=== PATIENT | female | born 1970 | race African-American/Black ===

== ENCOUNTER 2016-10-04 21:43 | Emergency (ER) | payer MEDICAID ==
[2016-06-10 08:11] VITALS: BMI 38.8
[~2016-10-04 21:43] MED LIST: ATIVAN1 MG PO; CELEXA20 MG PO; CYCLOBENZAPRINE10 MG PO; DULERA 100 MCG8.8 GM INH; FUROSEMIDE20 MG PO; HYDROCODONE-APA1 TAB PO; IPRAT-ALBUT 0.5-3 ML UPD; K-DUR20 MEQ PO; LASIX20 MG PO; LISINOPRIL-HCTZ1 T13 PO; LOPRESSOR25 MG PO; METOPROLOL TART25 MG PO; MOBIC7.5 MG PO; NORVASC5 MG PO; PROVENTIL HFA6.7 GM INH; RESTORIL15 MG PO; SYMBICORT 16010.2 GM INH; TYLENOL W/CODEI1 TAB PO; ULTRAM50 MG PO; ZITHROMAX250 MG PO; ZOLOFT50 MG PO
[2016-10-04 22:20] LABS: BASOPHILS 0.6 % (0.0-2.0); EOSINOPHILS 3.9 % (0-7); HEMATOCRIT 42.7 % (36.0-48.0); HEMOGLOBIN 14.4 g/dL (12-16); IMMATURE GRANULOCYTES 0.2 % (0-5); LYMPHOCYTES 38.5 % (15-50); MCH 27.5 pg (26.0-34.0); MCHC 33.7 g/dL (31.0-37.0); MCV 81.6 fL (80.0-100.0); MEAN PLATELET VOLUME 11.2 fL (7.4-10.4); MONOCYTES 7.6 % (2-11); NEUTROPHILS 49.2 % (40-80); PLATELET COUNT 326 10x3/uL (130-400); RBC 5.23 10x6/uL (4.00-5.40); RDW 13.1 % (11.5-14.5); WBC 6.2 10x3/uL (4.8-10.8)
[2016-10-04 22:34] LABS: ALBUMIN 3.8 g/dL (3.4-5.0); ALKALINE PHOSPHATASE 89 U/L (46-116); ALT (SGPT) 24 U/L (10-68); BILIRUBIN - TOTAL 0.18 mg/dL (0.2-1.3); CALC OSMOLALITY 274 mosm/kg (275-300); CALCIUM 8.7 mg/dL (8.5-10.1); CARBON DIOXIDE 26.8 mmol/L (21.0-32.0); CHLORIDE - SERUM 102 mmol/L (98-107); CREATININE - SERUM 1.1 mg/dL (0.6-1.3); GLUCOSE 123 mg/dL (74-106); POTASSIUM - SERUM 3.5 mmol/L (3.5-5.1); PROTEIN - SERUM 8.1 g/dL (6.4-8.2); SODIUM 138 mmol/L (136-145); UREA NITROGEN 8 mg/dL (7-18); eGFR NON AFRICAN AMERICAN 57 mL/min (90-120)
[2016-10-04 22:45] LABS: CHOLESTEROL, TOTAL 190 mg/dL (0-200); CKMB 0.2 U/L (0.0-3.6); CREATINE KINASE 144 UL (21-215); HDL CHOLESTEROL 47 mg/dL (32-96); LDL CHOLESTEROL 117 mg/dL (0-100); LDL-HDL RATIO 2.5 ratio (1.5-3.5); TRIGLYCERIDE 131 mg/dL (30-200); TROPONIN-I < 0.017 ng/mL (0.000-0.060)
== END 2016-10-04 23:19 | disposition home or self-care (01) ==
LOC: D.ER 21:43
PROVIDERS: Emergency Medicine
DX: R07.9 Chest pain, unspecified (principal); I10 Essential (primary) hypertension; E11.9 Type 2 diabetes mellitus without complications; R00.0 Tachycardia, unspecified

== ENCOUNTER 2016-11-08 21:14 | Emergency (ER) | payer MEDICAID ==
[2016-06-10 08:11] VITALS: BMI 38.8
== END 2016-11-08 23:15 | disposition home or self-care (01) ==
LOC: D.ER 21:14
DX: M79.7 Fibromyalgia (principal)

== ENCOUNTER 2016-11-25 19:25 | Emergency (ER) | payer MEDICAID ==
[2016-06-10 08:11] VITALS: BMI 38.8
== END 2016-11-25 20:37 | disposition home or self-care (01) ==
LOC: D.ER 19:25
DX: M79.605 Pain in left leg (principal); M19.90 Unspecified osteoarthritis, unspecified site; S80.12XA Contusion of left lower leg, initial encounter; W19.XXXA Unspecified fall, initial encounter; Y93.89 Activity, other specified; Y92.89 Other specified places as the place of occurrence of the external cause; G89.18 Other acute postprocedural pain; M79.7 Fibromyalgia; I10 Essential (primary) hypertension

== ENCOUNTER 2017-01-13 09:20 | Emergency (ER) | payer MEDICAID ==
[2016-06-10 08:11] VITALS: BMI 38.8
[2017-01-13 10:17] LABS: BASOPHILS 0.6 % (0-2); EOSINOPHILS 1.7 % (0-7); HEMOGLOBIN 13.9 g/dL (12-16); IMMATURE GRANULOCYTES 0.2 % (0-5); LYMPHOCYTES 45.5 % (15-50); MCH 28.1 pg (26.0-34.0); MCHC 33.9 g/dL (31.0-37.0); MEAN PLATELET VOLUME 10.9 fL (7.4-10.4); MONOCYTES 11.9 % (2-11); NEUTROPHILS 40.1 % (40-80); PLATELET COUNT 293 10x3/uL (130-400); RBC 4.94 10x6/uL (4.00-5.40); RDW 13.6 % (11.5-14.5); WBC 5.2 10x3/uL (4.8-10.8)
[2017-01-13 10:32] LABS: ALBUMIN 3.9 g/dL (3.4-5.0); ANION GAP 13.2 mmol/L (8-16); BILIRUBIN - TOTAL 0.63 mg/dL (0.2-1.3); CALCIUM 9.1 mg/dL (8.5-10.1); CARBON DIOXIDE 29.3 mmol/L (21.0-32.0); CREATININE - SERUM 1.3 mg/dL (0.6-1.3); POTASSIUM - SERUM 3.5 mmol/L (3.5-5.1)
[2017-01-13 11:41] LABS: APPEARANCE CLOUDY (CLEAR); BILIRUBIN NEGATIVE (NEGATIVE); COLOR YELLOW (YELLOW); GLUCOSE NEGATIVE (NEGATIVE); KETONE SMALL mg/dL (NEGATIVE); LEUKOCYTE ESTERASE NEGATIVE (NEGATIVE); NITRITE NEGATIVE (NEGATIVE); PROTEIN NEGATIVE (NEGATIVE); UROBILINOGEN NORMAL (NORMAL)
== END 2017-01-13 12:50 | disposition home or self-care (01) ==
LOC: D.ER 09:20
PROVIDERS: Emergency Medicine
DX: R42 Dizziness and giddiness (principal); I95.9 Hypotension, unspecified; E11.9 Type 2 diabetes mellitus without complications

== ENCOUNTER → 2017-03-13 14:40 | Outpatient (CLI) | payer MEDICAID ==
[2016-06-10 08:11] VITALS: BMI 38.8
== END | disposition home or self-care (01) ==
LOC: D.MRI 03-09 11:00
DX: M54.2 Cervicalgia (principal)

== ENCOUNTER → 2017-04-27 10:32 | Outpatient (CLI) | payer OTHER ==
[2016-06-10 08:11] VITALS: BMI 38.8
== END | disposition home or self-care (01) ==
LOC: D.RAD 10:32
DX: Z02.71 Encounter for disability determination (principal)

== ENCOUNTER → 2017-06-05 12:32 | Outpatient (CLI) | payer MEDICAID ==
[2016-06-10 08:11] VITALS: BMI 38.8
[~2017-06-05 12:32] MED LIST changes: +ALDACTONE50 MG PO
== END | disposition home or self-care (01) ==
LOC: D.MRI 12:32
DX: M54.12 Radiculopathy, cervical region (principal)

== ENCOUNTER 2017-06-16 06:52 | Inpatient (IN) | payer MEDICAID ==
[2017-06-15 14:54] LABS: HEMATOCRIT 41.4 % (36.0-48.0); HEMOGLOBIN 13.8 g/dL (12-16); MCH 27.9 pg (26.0-34.0); MCHC 33.3 g/dL (31.0-37.0); MCV 83.6 fL (80.0-100.0); MEAN PLATELET VOLUME 10.8 fL (7.4-10.4); RBC 4.95 10x6/uL (4.00-5.40); RDW 13.6 % (11.5-14.5); WBC 5.9 10x3/uL (4.8-10.8)
[2017-06-15 15:03] LABS: ANION GAP 13.3 mmol/L (8-16); CALCIUM 8.8 mg/dL (8.5-10.1); CARBON DIOXIDE 27.8 mmol/L (21.0-32.0); CREATININE - SERUM 0.9 mg/dL (0.6-1.3); POTASSIUM - SERUM 4.1 mmol/L (3.5-5.1)
[2017-06-16] VITALS (20 sets, daily range): BP systolic 96–148; BP diastolic 55–89; BMI 36.8; BMI 39.5
[~2017-06-16] VITALS: Ht 162.6 cm; Wt 99.5 kg
--- NOTE | 2017-06-16 09:05 | NUR ---
0905 STATES IS A DIET CONTROLLED TYPE 2 DIABETIC.
--- NOTE | 2017-06-16 13:00 | NUR ---
REC'D PT FROM OR VIA BED, ACCOMPANIED BY HOSPTIAL STAFF. VSS, 3LNC, INCISION NOTED TO RIGHT NECK. RIGHT HAND PIV WITH FLUIDS INFUSING, SEE FLOW SHEET. SHIFT ASSESSMENT COMPLETED, SEE FLOW SHEET. BED LOCKED IN LOWEST POSITION, CALL LIGHT IN REACH, BED ALARM ACTIVE, WILL CONTINUE TO MONITOR PT.
--- NOTE | 2017-06-16 13:02 | NUR ---
ALL NEURO CHECKS INTACT
--- NOTE | 2017-06-16 13:17 | NUR ---
Spoke with Dr Ross about restarting home medications. He had already left hospital. Reviewed list. Ok to restart.
--- NOTE | 2017-06-16 15:51 | NUR ---
PT RESTING WITH EYES CLOSED, VSS, DENIES ANY PAIN, WILL CONTINUE TO MONITOR PT.
--- NOTE | 2017-06-16 16:20 | NUR ---
TRANSFERRED PT FROM BED TO BATHROOM, PT VOIDED 350 ML, TRANSFERRED BACK TO BED, WILL CONTINUE TO MONITOR PT.
--- NOTE | 2017-06-16 17:00 | NUR ---
PT TOLERATING CLEAR LIQUIDS AND FULL LIQUIDS, ASKING FOR "REAL FOOD", WILL ORDER REGULAR DIET TRAY. WILL CONTINUE TO MONITOR PT.
--- NOTE | 2017-06-16 19:30 | NUR ---
REPORT RECEIVED AND CARE ASSUMED. INITIAL SHIFT ASSESSMENT COMPLETED SEE FLOWSHEET. IVF AND LINES DATED AND LABELED AND CURRENT. PT BEING MONITORED PER STANDARD CVICU PROTOCOL WITH ALL ALARMS SET AND VERIFIED. DRESSING TO RIGHT NECK CDI AND WITH NO VISIBLE DRAINAGE NOTED. PT IS WEARING SOFT CERVICAL COLLAR WHILE LYING IN BED STATING IT FEELS BETTER WITH IT ON. CALL LIGHT IN REACH AND BED IS IN LOW POSITION.
--- NOTE | 2017-06-16 20:00 | NUR ---
VISITORS AT BEDSIDE AT THIS TIME. PT IS VISITING FREELY NO REQUESTS
--- NOTE | 2017-06-16 20:40 | NUR ---
PT AMBULATED TO BATHROOM WITHOUT DIFFICULTY. WEARING SOFT CERVICAL COLLAR. STATES HER PAIN IS A 6 ON SCALE OF 0-10 PAIN DUE TO SORE THROAT. REFUSES MEDICINAL INTERVENTION. ACCEPTED SOME HOT TEA AND JELLO TO SOOTHE HER SORE THROAT. HS SNACK PROVIDED
--- NOTE | 2017-06-16 21:30 | NUR ---
PT STATES SHE IS FEELING FINE. STATES THE HOT TEA HELPED HER THROAT. NO FURTHER NEEDS VOICED.
--- NOTE | 2017-06-16 23:15 | NUR ---
SHIFT ASSESSMENT CHARTED ON FLOWSHEET. PT STATES SHE IS BEGINING TO HAVE PAIN IN NECK AND MEDS GIVEN DOCUMENTED ON OCT. PT REFUSED THE NORCO STATING IT REALLY DIDNT HELP LAST TIME. PT HAS BEEN UP TO BATHROOM SEVERAL TIMES. NOTE GAIT IS STEADY AND HELP PROVIDED BUT IS ONLY NEEDED ONLY DUE TO THE AMOUNT OF LINES AND WIRES INVOLVED WITH MONITORING PT IN CVICU.
[2017-06-17] VITALS (11 sets, daily range): BP systolic 101–132; BP diastolic 59–84; Ht 162.6 cm; Wt 99.5 kg
--- NOTE | 2017-06-17 01:00 | NUR ---
PT SLEEPING RESP REG AND NONLABORED NO FURTHER EVIDENCE OF DISCOMFORT
--- NOTE | 2017-06-17 03:00 | NUR ---
SHIFT REASSESSMENT COMPLETED. NO SIGNIFICANT CHANGES. NEURO STATUS OF PT HAS REMAINED INTACT THROUGHOUT THIS SHIFT. PT DENIES NEEDS. IS AWAKE TEXTING ON HER CELL PHONE. CONTINUE TO MONITOR PER ORDER. DRESSING TO RIGHT NECK CDI
--- NOTE | 2017-06-17 05:00 | NUR ---
NEURO CHECKS WNL THOUGHOUT THIS SHIFT. PT AAOX4. DRESSING TO RIGHT NECK CDI. NEEDS MET THROUGHOUT THE SHIFT,
--- NOTE | 2017-06-17 07:00 | NUR ---
PT REPOR REC'D, PT CARE ASSUMED. PT RESTING WITH EYES CLOSED, VSS, ROOM AIR, DENIES ANY PAIN UPON ASSESSMENT, NO SIGNS OF PAIN OR DISTRESS. RIGHT HAND PIV WITH FLUIDS INFUSING, SEE FLOW SHEET,NO REDNESS OR SIGNS OF INFILTRATION. RIGHT NECK INCISION, DRESSING CDI. UP TO BATHROOM WITH ASSISTANCE. SHIFT ASSESSMENT COMPLETED, SEE FLOW SHEET. ROOM FREE OF CLUTTER, CALL LIGHT IN REACH, BED ALARM ACTIVE, WILL CTONINEU TO MONITOR PT.
--- NOTE | 2017-06-17 08:50 | NUR ---
PT C/O "STARTING TO FEEL TIGHTNESS IN MY CHEST, CAN DR. WELLS RESTART MY ASTHMA MEDICATIONS?" SPOKE WITH DR. WELLS, ORDERS REC'D, WILL CONTINUE TO MONITOR PT.
--- NOTE | 2017-06-17 09:38 | NUR ---
PT FAMILY AT THE BEDSIDE, ALL QUESTIONS ANSWERED, VSS, WILL CONTINUE TO MONITOR PT.
--- NOTE | 2017-06-17 10:20 | NUR ---
DR. WELLS AT THE BEDSIDE
--- NOTE | 2017-06-17 10:30 | NUR ---
SPOKE WITH LOUISE FROM DR. WELLS'S OFFICE, PT HAS F/U APPT 07/16/17 AT [id number]
--- NOTE | 2017-06-17 10:45 | NUR ---
D/C'ED RIGHT HAND PIV, TIP INTACT, 4X4 AND BAND AID APPLIED. D/C INSTRUCTIONS EXPLAINED TO PT AND PTS , VERBALIZED UNDERSTANDING, WILL CONTINUE TO MONITOR PT.
--- NOTE | 2017-06-17 11:00 | NUR ---
WHEELED PT OUT TO PTS 'S VEHICLE, DC PAPERWORK IN HAND.
--- NOTE | 2017-06-19 12:16 | OP ---
PATIENT NAME: RASHEED ATKINSON MEDICAL RECORD: [id number] :74 LOCATION:[id number] ADMISSION DATE:06/16/17 SURGEON: KEELY WELLS MD DATE OF OPERATION: 06/16/2017 PREOPERATIVE DIAGNOSES: Disc herniation and osteophyte formation at C5-C6 and C6-C7 with cervical radiculopathies. POSTOPERATIVE DIAGNOSES: Disc herniation and osteophyte formation at C5-C6 and C6-C7 with cervical radiculopathies. PROCEDURES: Anterior cervical discectomy and fusion with PEEK interbody cages, Biocell bone stem cells, Zavation anterior cervical plate and screws with midline plate of 28 mm and 16-mm screws. DESCRIPTION AND TECHNIQUE: After induction of general endotracheal anesthesia, the patient was positioned supine on the operating table. Neck was prepped and draped in usual sterile fashion. Fluoroscopic x-ray and [place] localized the C6 vertebral body. A transverse skin incision was carried out from the midline to the sternocleidomastoid muscle. The platysma was divided with #15 blade. Using blunt and sharp dissection with Metzenbaum scissors, I proceeded in an avascular plane medial to the carotid sheath. The C5-C6 and C6-C7 interspaces were identified. Longus colli muscle were elevated with Bovie cautery. A self-retaining retractor was placed deep to the longus colli muscles. The Effie distracting pins were place by C5, C6, and C7. Disc spaces were incised under distraction and disc material was removed with pituitary rongeurs and curettes. Osteophytes were drilled away posteriorly with Midas-Angus drill. The posterior longitudinal ligament was removed with Cloward rongeurs. Following this, the dura was decompressed at both levels well. A PEEK interbody cage was placed in each interspace under distraction. Prior to this, it was filled with bone stem cell allograft. A 28-mm midline plate was used to span the C5-C6 and C6-C7 interspaces. Locking cams were tightened down over screw heads. Meticulous hemostasis was maintained throughout the wound. The wound was irrigated with copious amounts of Ancef irrigant solution. The platysma and subdermal layer were closed with interrupted 3-0 Vicryl suture. The skin was closed with Steri-Strips and benzoin. A sterile dressing was applied to the wounds. The patient was awakened in good condition and taken to recovery. All counts were reported as correct. Estimated blood loss was minimal. TRANSINT:[id number] Voice Confirmation ID: [id number] DOCUMENT ID: [id number] KEELY WELLS MD at 1216 CC: [id number] DICTATION DATE: 06/16/17 1258 INFORMATION SYSTEMS DIRECTOR: 06/16/17 1323 DIS IN 06/17/17 [place] [id number] [place] [id number]
--- NOTE | 2017-07-14 13:27 | DS ---
PATIENT:RASHEED ATKINSON :74 MEDICAL RECORD: [id number] DISCHARGE SUMMARY ADMISSION DATE: 06/16/17 DISCHARGE DATE: 06/17/17 BRIEF SUMMARY AND HOSPITAL COURSE: The patient was admitted for anterior cervical diskectomy and fusion on 06/17/2017, discharged home on postoperative day #1. She tolerated the procedure well. She is followed with serial neuro checks and vitals in the ICU overnight. She is discharged home on a regular diet and hydrocodone for pain control and to resume the current home medications. She is to follow up with Dr. Ross in 2 weeks and in 4 weeks. CONDITION ON DISCHARGE: Stable. TRANSINT:[id number] Voice Confirmation ID: [id number] DOCUMENT ID: [id number] KEELY ROSS MD at 1327 CC: [id number] DICTATION DATE: 07/07/17 1224 PHARMACY INFORMATICS MANAGER: 07/08/17 0848 DIS IN 06/17/17 [place] [id number] [place] [address]
== END 2017-06-17 11:00 | disposition home or self-care (01) | DRG 473 ==
LOC: D.CVICU 06:52 → D.SDCHOLD 06:52 → D.CVICU 13:09
PROVIDERS: Anesthesiology; ADMIT Neurological Surgery
PROC: 0RT30ZZ Resection of Cervical Vertebral Disc, Open Approach (ICD-10-PCS; principal; 2017-06-16 10:00)
PROC: 0RG10A0 Fusion of Cervical Vertebral Joint with Interbody Fusion Device, Anterior Approach, Anterior Column, Open Approach (ICD-10-PCS; 2017-06-16 10:00)
DX: M50.222 Other cervical disc displacement at C5-C6 level (principal); M54.12 Radiculopathy, cervical region; M25.78 Osteophyte, vertebrae; I10 Essential (primary) hypertension; Z87.891 Personal history of nicotine dependence

== ENCOUNTER → 2018-02-16 17:08 | Outpatient (CLI) | payer MEDICAID ==
[2017-06-17 09:43] VITALS: BMI 37.6
[~2018-02-16 17:08] MED LIST changes: +FUROSEMIDE20 MG; +POTASSIUM99 M1; +TORADOL10 MG PO
== END | disposition home or self-care (01) ==
LOC: D.MRI 02-10 08:30
DX: M54.12 Radiculopathy, cervical region (principal)

== ENCOUNTER → 2018-04-16 10:35 | Outpatient (CLI) | payer MEDICAID ==
[2017-06-17 09:43] VITALS: BMI 37.6
== END | disposition home or self-care (01) ==
LOC: D.MRI 04-15 17:00
DX: M75.121 Complete rotator cuff tear or rupture of right shoulder, not specified as traumatic (principal)

== ENCOUNTER 2018-04-25 13:19 | Emergency (ER) | payer MEDICAID ==
[~2018-04-25] VITALS: Ht 162.6 cm; Wt 100.0 kg
[~2018-04-25 13:19] MED LIST changes: -FUROSEMIDE20 MG; -POTASSIUM99 M1; -TORADOL10 MG PO
[2018-04-25 13:23] VITALS: Ht 162.6 cm; Wt 100.0 kg
[2018-04-25] MEDS ORDERED: MOBIC7.5 MG PO (13:24)
[2018-04-25] MEDS ORDERED: FUROSEMIDE20 MG PO (13:25)
[2018-04-25] MEDS ORDERED: POTASSIUM99 M1 (13:25)
[2018-04-25] MEDS ORDERED: FUROSEMIDE20 MG (13:25)
[2018-04-25] MEDS ORDERED: TORADOL10 MG PO (14:53)
[2018-04-25 15:39] VITALS: BP 114/66
== END 2018-04-25 15:40 | disposition home or self-care (01) ==
LOC: D.ER 13:19
DX: M25.511 Pain in right shoulder (principal); I10 Essential (primary) hypertension

== ENCOUNTER → 2018-05-27 05:25 | Day surgery (SDC) | payer MEDICAID ==
[2018-05-21 09:30] LABS: BASOPHILS 0.3 % (0-2); EOSINOPHILS 1.5 % (0-7); HEMATOCRIT 41.1 % (36.0-48.0); LYMPHOCYTES 40.9 % (15-50); MCH 28.1 pg (26.0-34.0); MCHC 34.1 g/dL (31.0-37.0); MCV 82.5 fL (80.0-100.0); MEAN PLATELET VOLUME 10.3 fL (7.4-10.4); MONOCYTES 9.8 % (2-11); NEUTROPHILS 47.5 % (40-80); PLATELET COUNT 231 10x3/uL (130-400); RBC 4.98 10x6/uL (4.00-5.40); RDW 13.8 % (11.5-14.5); WBC 3.9 10x3/uL (4.8-10.8)
[2018-05-21 09:37] LABS: CALC OSMOLALITY 277 mosm/kg (275-300); CALCIUM 8.4 mg/dL (8.5-10.1); CARBON DIOXIDE 28.4 mmol/L (21.0-32.0); CHLORIDE - SERUM 104 mmol/L (98-107); CREATININE - SERUM 0.8 mg/dL (0.6-1.3); GLUCOSE 111 mg/dL (74-106); POTASSIUM - SERUM 3.6 mmol/L (3.5-5.1); SODIUM 139 mmol/L (136-145); UREA NITROGEN 10 mg/dL (7-18); eGFR NON AFRICAN AMERICAN 82 mL/min (90-120)
[~2018-05-27] VITALS: Ht 162.6 cm; Wt 98.9 kg
[~2018-05-27 05:25] MED LIST changes: +ALDACTONE25 MG PO; +POTASSIUM99 M1; +TORADOL10 MG PO
[2018-05-27 05:54] VITALS: BP 148/88; Ht 162.6 cm; Wt 98.9 kg
== END | disposition home or self-care (01) ==
LOC: D.OPS 05:25 → D.PAN 07:30 → D.OPS 07:30
PROVIDERS: Orthopaedic Surgery
DX: S43.421A Sprain of right rotator cuff capsule, initial encounter (principal); M75.21 Bicipital tendinitis, right shoulder; M13.811 Other specified arthritis, right shoulder

== ENCOUNTER 2019-01-19 15:57 | Emergency (ER) | payer MEDICAID ==
[2018-05-27 05:54] VITALS: BMI 37.5
== END 2019-01-19 16:23 | disposition left against medical advice (07) ==
LOC: D.ER 15:57
DX: M25.511 Pain in right shoulder (principal)

== ENCOUNTER 2019-02-17 04:49 | Day surgery (SDC) | payer MEDICAID ==
[2019-02-11 14:48] LABS: BASOPHILS 0.5 % (0-2); EOSINOPHILS 2.7 % (0-7); HEMATOCRIT 41.2 % (36.0-48.0); HEMOGLOBIN 14.1 g/dL (12-16); LYMPHOCYTES 42.7 % (15-50); MCH 27.5 pg (26.0-34.0); MCHC 34.2 g/dL (31.0-37.0); MCV 80.5 fL (80.0-100.0); MEAN PLATELET VOLUME 11.1 fL (7.4-10.4); MONOCYTES 8.9 % (2-11); NEUTROPHILS 45.2 % (40-80); PLATELET COUNT 252 10x3/uL (130-400); RBC 5.12 10x6/uL (4.00-5.40); RDW 13.6 % (11.5-14.5); WBC 4.4 10x3/uL (4.8-10.8)
[2019-02-11 15:08] LABS: ANION GAP 10.7 mmol/L (8-16); CALCIUM 8.4 mg/dL (8.5-10.1); CREATININE - SERUM 0.9 mg/dL (0.6-1.3); POTASSIUM - SERUM 3.7 mmol/L (3.5-5.1)
[~2019-02-17] VITALS: Ht 162.6 cm; Wt 105.2 kg
[~2019-02-17 04:49] MED LIST changes: +BAYER CHEWABLE81 MG PO; +COZAAR25 MG PO; +HYDROCHLOROTHIA25 MG PO; +VITAMIN B-12500 MCG PO; +VITAMIN D31000 UNIT PO
[2019-02-17 05:44] VITALS: BP 126/83; Ht 162.6 cm; Wt 105.2 kg
[2019-02-17] MEDS ORDERED: HYDROCODONE-ACETAMIN (10:44)
== END 2019-02-17 11:25 | disposition home or self-care (01) ==
LOC: D.OPS 04:49 → D.PAN 07:30 → D.OPS 11:25
PROVIDERS: ATTEND Orthopaedic Surgery
DX: M75.111 Incomplete rotator cuff tear or rupture of right shoulder, not specified as traumatic (principal); M75.41 Impingement syndrome of right shoulder; Z01.812 Encounter for preprocedural laboratory examination